=== PATIENT | male | born 1950 | race Caucasian/White ===

== ENCOUNTER → 2020-05-05 09:28 | Outpatient (BNVA) | payer MEDICARE, SELFPAY | PROVIDERS: PCP Family Medicine; Referring Provider Family Medicine; Visit Provider Urology | DX: R97.20 Elevated prostate specific antigen [PSA] (principal); N40.0 Benign prostatic hyperplasia without lower urinary tract symptoms; Z79.84 Long term (current) use of oral hypoglycemic drugs; Z79.899 Other long term (current) drug therapy | CPT/HCPCS: 99213 ==

== ENCOUNTER → 2021-05-10 10:03 | Outpatient (BNVA) | payer MEDICARE, SELFPAY | PROVIDERS: PCP Family Medicine; Visit Provider Urology | DX: R97.20 Elevated prostate specific antigen [PSA] (principal); N40.0 Benign prostatic hyperplasia without lower urinary tract symptoms | CPT/HCPCS: Q3014 ==

== ENCOUNTER → 2021-11-02 11:20 | Outpatient (BNVA) | payer MEDICARE, SELFPAY | PROVIDERS: PCP Family Medicine; Visit Provider Urology | DX: N40.0 Benign prostatic hyperplasia without lower urinary tract symptoms (principal); R97.20 Elevated prostate specific antigen [PSA] | CPT/HCPCS: 51798; 99212 ==

== ENCOUNTER → 2022-11-28 10:01 | Outpatient (BNVA) | payer MEDICARE, SELFPAY | PROVIDERS: PCP Family Medicine; Visit Provider Urology | DX: N40.1 Benign prostatic hyperplasia with lower urinary tract symptoms (principal); N13.8 Other obstructive and reflux uropathy; R97.20 Elevated prostate specific antigen [PSA]; E11.69 Type 2 diabetes mellitus with other specified complication; N52.1 Erectile dysfunction due to diseases classified elsewhere; Z79.899 Other long term (current) drug therapy | CPT/HCPCS: Q3014 ==

== ENCOUNTER 2023-05-31 10:45 | Outpatient (AMB) | payer MEDICARE, SELFPAY ==
--- NOTE | 2023-05-31 10:46 | A.OFFVIS_ITS ---
Intake Intake Visit Reasons: 6m/PSA(set) Intake Note: Patient is Present for Telephone Follow Up PSA Urology Med: Finasteride, Tadalafil Antibiotic Allergy: Sulfa Blood Thinner: None Allergies codeine Allergy (Unknown, Verified 05/31/23 10:46) Unknown Sulfa (Sulfonamide Antibiotics) Allergy (Unknown, Verified 05/31/23 10:46) Unknown Sulfamethoxazole Allergy (Unknown, Uncoded 05/31/23 10:46) Unknown HPI HPI Comments History of Present Illness Details Brant is a pleasant male. He is a patient of Dr. Roman. He seen for the following urologic issues - lower urinary tract symptoms with elev ated PSA - erectile dysfunction in setting of [place] Telemedicine evaluation 15 minute consultation [employer] kerrie Video attempted Continued PSA full with switch in finasteride to Sunday, Sunday, Sunday Still remains down compared to initial Testosterone in normal range Good response to daily tadalafil for erectile issues Lower urinary tract symptoms PSA stable at 1.3 on finasteride Repeat in 6 months to ensure stability Finasteride M/W/F He presents for follow-up evaluation of elevated PSA. ? Current management is observation. ? Laboratory investigations include 03/07 2.6, 01/09 3.8, 05/11 1.6,05/12 3.1, 10/11 1.3 Finasteride, 05/13 1.4, 10/12 P 2.3 T 428, 05/14 1.2 Individualized Prostate Cancer Risk Calculator < 5% high risk, Discussion regarding TRUS biopsy performed, Discussed use of 5AR to help differentiate prostate cancer from benign disease. He would like to try this and understands the small risk associated with a delay in diagnosis. Symptoms include incomplete emptying, weak stream. Therapeutic plan will be - Continue finasteride Erectile dysfunction Background diabetes - Current therapy metformin, Trulicity Current therapy 5 mg tadalafil daily PFSH Medical History Benign prostatic hyperplasia with lower urinary tract symptoms Coronary atherosclerosis Diabetes mellitus, type II GERD (gastroesophageal reflux disease) Nocturia Review of Systems Const All systems reviewed & are unremarkable except as noted in HPI and below Reports no additional complaints Resp Reports no additional complaints GI Reports no additional complaints Reports as per HPI Musc Reports no additional complaints Physical Exam Telemedicine evaluation Appropriate responses Regular breathing rate and rhythm HEENT Head: Yes normal to inspection Ears: hearing grossly normal bilaterally Eyes General: appearance normal, both eyes and all related structures Neck Neck: Yes normal visual inspection Chest Chest palpation & inspection: normal inspection of the chest Resp Effort & Inspection: normal respiratory effort and able to speak in complete sentences Assessment & Plan Assessment & Plan (1) Elevated PSA: Code(s): R97.20 - Elevated prostate specific antigen [PSA] (2) BPH (benign prostatic hyperplasia): Code(s): N40.0 - Benign prostatic hyperplasia without lower urinary tract symptoms (3) Erectile dysfunction associated with type 2 diabetes mellitus: Code(s): E11.69 - Type 2 diabetes mellitus with other specified complication; N52.1 - Erectile dysfunction due to diseases classified elsewhere Plan Six month follow-up Orders: Orders Prostate Specific Antigen 6 Months R97.20 - Elevated prostate specific antigen [PSA] Patient Instructions: Imaging studies, laboratory and physical exam results were discussed and reviewed in detail. No major barriers to patient understanding were identified. An opportunity to ask questions regarding the treatment plan was provided. All questions were answered. The patient expressed understanding and agreement with the above treatment plan. The patient is aware they should contact our office by phone for worsening of their current condition or the appearance of new urologic symptoms. Compliance is encouraged with any medications and followup testing that is ordered. It is a privilege to participate in the urologic care of your patient. If you have any questions or concerns regarding treatment for the above conditions, or other urologic issues, please do not hesitate to contact me. The office telephone contact is [phone]. This note is constructed using voice recognition software. While every effort has been made to ensure accuracy air [employer] operations inspector errors may have been included. Yours sincerely, Dr Kendall Watters MD, [facility] - Urology Providers of Expert, Compassionate Care for the Genitourinary System Telehealth Telehealth Location of provider rendering services: practice address Location of patient: address on file Patient Identification confirmed using: Name, : Yes Telehealth method: video Patient verbally consented to treatment: Yes Patient verbally consented to billing insurance company: Yes Patient informed of any privacy concerns related to visit: Yes Coding Level of Care Code Tele Est Pt Level 3 (71667) Diagnoses Elevated PSA R97.20 BPH (benign prostatic hyperplasia) N40.0 Erectile dysfunction associated with type 2 diabetes mellitus E11.69; N52.1
== END 2023-05-31 12:22 | disposition home or self-care (01) ==
LOC: HO.HUSH 10:45
PROVIDERS: PCP Family Medicine; Visit Provider Urology
DX: R97.20 Elevated prostate specific antigen [PSA] (principal); N40.0 Benign prostatic hyperplasia without lower urinary tract symptoms; E11.69 Type 2 diabetes mellitus with other specified complication; N52.1 Erectile dysfunction due to diseases classified elsewhere
CPT/HCPCS: 99213

== ENCOUNTER → 2023-05-31 10:45 | Outpatient (BNVA) | payer MEDICARE, SELFPAY | PROVIDERS: PCP Family Medicine; Visit Provider Urology ==